=== PATIENT | female | born 1965 | race African-American/Black ===

== ENCOUNTER 2017-12-19 13:42 | Emergency (ER) | payer OTHER, MEDICAID ==
[~2017-12-19] VITALS: Ht 157.5 cm; Wt 65.0 kg
[2017-12-19] MEDS ORDERED: AMLO2.5T45 PO (13:48)
[2017-12-19] MEDS ORDERED: OXYB5TAB11 PO (13:48)
[2017-12-19] MEDS ORDERED: OXCA300T31 PO (13:48)
[2017-12-19] MEDS ORDERED: BENZ0.5T3 PO (13:48)
[2017-12-19] MEDS ORDERED: DIVA500T PO (13:48)
[2017-12-19] MEDS ORDERED: METO25TA6 PO (13:48)
[2017-12-19] MEDS ORDERED: ZOLP5TAB8 PO (13:48)
[2017-12-19] MEDS ORDERED: RISP0.2514 PO (13:48)
[2017-12-19] MEDS ORDERED: CLON0.5T4 PO (13:48)
[2017-12-19] MEDS ORDERED: TRAMADOL 50MG TABLET PO ONE (14:30)
[2017-12-19 16:15] VITALS: BP 109/71
== END 2017-12-19 17:15 | disposition home or self-care (01) ==
LOC: ER 13:42
DX: S89.91XA Unspecified injury of right lower leg, initial encounter (principal); I10 Essential (primary) hypertension; F41.9 Anxiety disorder, unspecified; M17.11 Unilateral primary osteoarthritis, right knee; J45.909 Unspecified asthma, uncomplicated; K21.9 Gastro-esophageal reflux disease without esophagitis; E78.00 Pure hypercholesterolemia, unspecified; F20.9 Schizophrenia, unspecified; X58.XXXA Exposure to other specified factors, initial encounter; Y93.84 Activity, sleeping; Y92.89 Other specified places as the place of occurrence of the external cause
CPT/HCPCS: 73562; 81025; 99284; L1830